=== PATIENT | male | born 1955 | race Caucasian/White ===

== ENCOUNTER 2024-06-15 13:41 | Emergency (ER) | payer BC, MEDICARE | END 2024-06-15 16:19 | disposition home or self-care (01) | LOC: JP.ED 13:41 | DX: S50.02XA Contusion of left elbow, initial encounter (principal); E78.00 Pure hypercholesterolemia, unspecified; Z79.899 Other long term (current) drug therapy; W01.0XXA Fall on same level from slipping, tripping and stumbling without subsequent striking against object, initial encounter | CPT/HCPCS: 73080-26-LT; 73080-LT; 99283 ==

== ENCOUNTER 2024-10-05 07:20 | Day surgery (SDC) | payer MEDICARE ==
[2024-10-05] MEDS ORDERED: fentaNYL 50 MCG/ML SDV ONE (07:48)
[2024-10-05] MEDS ORDERED: Midazolam 1 MG/ML 2 ML SDV ONE (07:48)
[2024-10-05] MEDS ORDERED: Propofol 200 MG/20 ML SDV ONE ×2 (07:48→08:21)
[2024-10-05] MEDS: Lactated Ringers 1,000 ML IV SCH (08:43)
== END 2024-10-05 11:40 | disposition home or self-care (01) ==
LOC: JP.SDS 07:20
PROVIDERS: ATTEND Surgery
DX: D64.9 Anemia, unspecified (principal); K57.30 Diverticulosis of large intestine without perforation or abscess without bleeding; E11.9 Type 2 diabetes mellitus without complications
CPT/HCPCS: 00813; 43239; 45378; J2250; J2704; J3010; J7120; 88305